=== PATIENT | male | born 1975 | race Caucasian/White ===

== ENCOUNTER 2017-07-31 21:24 | Emergency (ER) | payer OTHER ==
[2017-07-31 21:30] VITALS: RESP 18
[2017-07-31] MEDS ORDERED: NS 1,000 ML IV ONE (22:33)
[2017-07-31] MEDS ORDERED: ONDANSETRON 4 MG/2 ML VIAL IVP ONE (22:33)
[2017-07-31] MEDS ORDERED: METOCLOPRAMIDE 10 MG/2 ML VIAL IVP ONE (22:33)
[2017-07-31] MEDS ORDERED: DICYCLOMINE 10 MG CAP PO ONE (22:33)
--- NOTE | 2017-07-31 22:55 | EDPHY ---
H & P Stated Complaint: BURNING IN ABD FOR PAST FEW HRS AFTER DINNER, HX OF GERD Time Seen by Provider: 07/31/17 22:13 HPI/ROS: HPI The patient presents with abdominal pain which began at about 730 about 30 minutes after eating a dinner which included some tomato sauce. The pain is intermittent and comes in waves, it has gotten progressively worse, it is mostly supraumbilical, however radiates throughout his abdomen, it is crampy and achy in nature. It does not radiate though it is worse when he is lying down. He took Tums and ranitidine at home without any improvement in his symptoms. Of note, he did take several doses of Excedrin today because of a migraine headache that he had. He has had normal bowel movements, last this morning, without any dark or bloody stools. He does history of GERD and IBS and has had similar pain previously, however this is more severe.. REVIEW OF SYSTEMS Constitutional: No fever, no chills. Eyes: No discharge. ENT: No sore throat. Cardiovascular: No chest pain, no palpitations. Respiratory: No cough, no shortness of breath. Gastrointestinal: Nauseated Genitourinary: No hematuria. Musculoskeletal: No back pain. Skin: No rashes. Neurological: No headache. PMHx: GERD, IBS Soc Hx: Lives at home with partner in children PHYSICAL General Appearance: Alert, somewhat uncomfortable appearing Eyes: Pupils equal and round no pallor or injection ENT, Mouth: Mucous membranes moist Respiratory: There are no retractions, lungs are clear to auscultation Cardiovascular: Regular rate and rhythm Gastrointestinal: Abdomen is soft, distended, bowel sounds are present, mild tenderness in the supraumbilical region without any rebound or guarding Neurological: A&O, moves all extremities Skin: Warm and dry, no rashes Musculoskeletal: Neck is supple non tender Extremities: symmetrical, full range of motion Psychiatric: Patient is oriented X 3, there is no agitation Source: Patient Exam Limitations: No limitations - Personal History Current Tetanus/Diphtheria Vaccine: Yes Current Tetanus Diphtheria and Acellular Pertussis (TDAP): Yes - Medical/Surgical History Hx Asthma: No Hx Chronic Respiratory Disease: No Hx Diabetes: No Hx Cardiac Disease: No Hx Renal Disease: No Hx Cirrhosis: No Hx Alcoholism: No Hx HIV/AIDS: No Hx Splenectomy or Spleen Trauma: No Other PMH: GERD, SLEEP APNIA - Social History Smoking Status: Never smoked Constitutional: Initial Vital Signs Temperature (C) 37.1 C 07/31/17 21:26 Heart Rate 88 07/31/17 21:26 Respiratory Rate 18 07/31/17 21:26 Blood Pressure 172/108 H 07/31/17 21:26 O2 Sat (%) 97 07/31/17 21:26 O2 Delivery Mode Room Air Allergies/Adverse Reactions: Tetracyclines Allergy (Verified 07/31/17 21:29) Home Medications: Medication Instructions Recorded Hyoscyamine Sulfate [Hyomax-Dt] 0.375 mg PO PRN PRN 03/15/12 Magnesium Oxide [Magnesium Oxide 400 mg PO DAILY PRN 03/15/12 400 mg (OTC)] Mometasone Furoate Nasal [Nasonex] 1 sprays [place] HS 03/15/12 Ranitidine HCl 150 mg PO 07/31/17 Medical Decision Making Differential Diagnosis: 42-year-old male with history of GERD and IBS presents with progressive abdominal pain for the last several hours after eating dinner. He has associated nausea. On exam, he has very mild tenderness in his periumbilical region. Differential diagnosis includes GERD, IBS, less likely peptic ulcer disease given no occur bloody stools, less likely bowel obstruction given no history of operations and no obstipation. In the emergency department, patient had labs checked and these were unremarkable. He was given IV fluids and medication and felt much better. He was well enough to go home. I have instructed him that he can follow up with his GI doctor and he can start taking omeprazole for the next 1 month. He is in agreement with this plan. - Data Points Laboratory Results: Laboratory Results 07/31/17 22:50 07/31/17 22:50 07/31/17 07/31/17 22:50 22:50 WBC 12.34 10^3/uL H 10^3/uL (3.80-9.50) RBC 5.12 10^6/uL 10^6/uL (4.40-6.38) Hgb 15.2 g/dL g/dL (13.7-17.5) Hct 42.1 % % (40.0-51.0) MCV 82.2 fL fL (81.5-99.8) MCH 29.7 pg pg (27.9-34.1) MCHC 36.1 g/dL g/dL (32.4-36.7) RDW 13.2 % % (11.5-15.2) Plt Count 300 10^3/uL 10^3/uL (150-400) MPV 9.2 fL fL (8.7-11.7) Neut % (Auto) 74.4 % H % (39.3-74.2) Lymph % (Auto) 16.1 % % (15.0-45.0) Noble % (Auto) 7.1 % % (4.5-13.0) Eos % (Auto) 1.4 % % (0.6-7.6) Baso % (Auto) 0.6 % % (0.3-1.7) Nucleat RBC Rel Count 0.0 % % (0.0-0.2) Absolute Neuts (auto) 9.17 10^3/uL H 10^3/uL (1.70-6.50) Absolute Lymphs (auto) 1.99 10^3/uL 10^3/uL (1.00-3.00) Absolute Monos (auto) 0.88 10^3/uL H 10^3/uL (0.30-0.80) Absolute Eos (auto) 0.17 10^3/uL 10^3/uL (0.03-0.40) Absolute Basos (auto) 0.08 10^3/uL 10^3/uL (0.02-0.10) Absolute Nucleated RBC 0.00 10^3/uL 10^3/uL (0-0.01) Immature Gran % 0.4 % % (0.0-1.1) Immature Gran # 0.05 10^3/uL 10^3/uL (0.00-0.10) Sodium 143 mEq/L mEq/L (134-144) Potassium 4.1 mEq/L mEq/L (3.5-5.2) Chloride 107 mEq/L mEq/L (97-110) Carbon Dioxide 19 mEq/l L mEq/l (22-31) Anion Gap 17 mEq/L H mEq/L (8-16) BUN 13 mg/dL mg/dL (7-23) Creatinine 1.0 mg/dL mg/dL (0.7-1.3) Estimated GFR > 60 Glucose 146 mg/dL H mg/dL (70-100) Calcium 9.3 mg/dL mg/dL (8.5-10.4) Total Bilirubin 0.1 mg/dL mg/dL (0.1-1.4) Conjugated Bilirubin 0.0 mg/dL mg/dL (0.0-0.5) Unconjugated Bilirubin 0.1 mg/dL mg/dL (0.0-1.1) AST 35 IU/L IU/L (17-59) ALT 82 IU/L H IU/L (21-72) Alkaline Phosphatase 53 IU/L IU/L (38-126) Total Protein 6.8 g/dL g/dL (6.3-8.2) Albumin 4.2 g/dL g/dL (3.5-5.0) Lipase 82 IU/L IU/L (23-300) Medications Given: Discontinued Medications Dicyclomine HCl (Bentyl) 20 mg PO EDNOW ONE Stop: 07/31/17 22:34 Last Admin: 07/31/17 22:47 Dose: 20 mg Sodium Chloride (Ns) 1,000 mls @ 0 mls/hr IV EDNOW ONE; Wide Open PRN Reason: Protocol Stop: 07/31/17 22:34 Last Admin: 07/31/17 22:47 Dose: 1,000 mls Metoclopramide HCl (Reglan Injection) 10 mg IVP EDNOW ONE Stop: 07/31/17 22:34 Last Admin: 07/31/17 22:47 Dose: 10 mg Ondansetron HCl (Zofran) 4 mg IVP EDNOW ONE Stop: 07/31/17 22:34 Last Admin: 07/31/17 22:47 Dose: 4 mg Departure - Departure Disposition: Home, Routine, Self-Care Clinical Impression: Abdominal pain Qualifiers: Abdominal location: generalized Qualified Code(s): R10.84 - Generalized abdominal pain Condition: Good Instructions: Diet for Stomach Ulcers and Gastritis (ED), Gastroesophageal Reflux Disease (ED) Additional Instructions: The cause of abdominal pain is not entirely clear though could be related to GERD. Please make sure to avoid spicy or acidic foods. Excedrin could also be contributing to her pain so I would avoid taking this if at all possible. If your symptoms continue, should be re-evaluated by her GI doctor. You should return to the emergency department if your worse in any way. Referrals: Marii Ortez MD [Primary Care Provider] - As per Instructions
[2017-07-31 22:58] LABS: % IMMATURE GRANULYOCYTES 0.4 % (0.0-1.1); ABSOLUTE IMMATURE GRANULOCYTES 0.05 10^3/uL (0.00-0.10); ADD DIFF? NO; ADD MORPH? NO; ADD SCAN? NO; ATYPICAL LYMPHOCYTE FLAG 0 (0-99); FRAGMENT RBC FLAG 0 (0-99); HEMATOCRIT 42.1 % (40.0-51.0); HEMOGLOBIN 15.2 g/dL (13.7-17.5); LEFT SHIFT FLG 0 (0-99); LIPEMIA HEMOLYSIS FLAG 90 (0-99); MEAN CELL HEMOGLOBIN 29.7 pg (27.9-34.1); MEAN CELL HEMOGLOBIN CONCENTR. 36.1 g/dL (32.4-36.7); MEAN CELL VOLUME 82.2 fL (81.5-99.8); MEAN PLATELET VOLUME 9.2 fL (8.7-11.7); PLATELET CLUMPS FLAG 10 (0-99); PLATELET COUNT 300 10^3/uL (150-400); RED BLOOD CELL COUNT 5.12 10^6/uL (4.40-6.38); RED CELL DISTRIBUTION WIDTH 13.2 % (11.5-15.2)
[2017-08-01] LABS: ALANINE AMINOTRANSFERASE 82 IU/L (21-72); ALBUMIN 4.2 g/dL (3.5-5.0); ALKALINE PHOSPHATASE 53 IU/L (38-126); ANION GAP 17 mEq/L (8-16); ASPARTATE AMINOTRANSFERASE 35 IU/L (17-59); BILIRUBIN,TOTAL 0.1 mg/dL (0.1-1.4); BILIRUBIN-UNCONJUGATED 0.1 mg/dL (0.0-1.1); CALCIUM 9.3 mg/dL (8.5-10.4); CARBON DIOXIDE 19 mEq/l (22-31); CHLORIDE 107 mEq/L (97-110); GLOMERULAR FILTRATION RATE > 60; GLUCOSE 146 mg/dL (70-100); POTASSIUM 4.1 mEq/L (3.5-5.2); SODIUM 143 mEq/L (134-144); TOTAL PROTEIN 6.8 g/dL (6.3-8.2)
[2017-08-01 00:20] VITALS: BP 148/93; PULSE 79; TEMP 98.2; O2SAT 95
== END 2017-08-01 00:19 | disposition home or self-care (01) ==
DX: R10.84 Generalized abdominal pain (principal); E86.9 Volume depletion, unspecified
CPT/HCPCS: 96374; J2405; J2765

== ENCOUNTER → 2018-11-15 | Outpatient (CLI) | payer OTHER | LOC: BMCIMAGING 07:49 | PROVIDERS: ATTEND Internal Medicine | DX: R10.11 Right upper quadrant pain (principal) ==